=== PATIENT | male | born 1965 | race Caucasian/White ===

== ENCOUNTER 2021-02-25 14:38 | Outpatient (CLI) | payer OTHER, SELFPAY ==
--- NOTE | 2021-03-16 13:47 | WPDSLEEPSTUD ---
Sleep Study Date of Study: 02/25/21 Ordering Provider: Sadiq Gunderson MD Interpreting Physician: Brynn Ardon MD Sleep Study Type: CPAP Titration Height: 1.73 m Weight: 95.254 kg Body Mass Index: 31.9 Neck Circumference (inches): 17 [place]: 8 Reason for Sleep Study re-titration; he snores with CPAP * 04/20/2016 - CPAP titration wiht optimal pressure 8 cm * 05/10/2016 - Home sleep test - AHI 18, lowest saturation 78% Sleep History Jose Petersen is a 55 year old male with Obstructive sleep apnea syndrome who uses CPAP. Over the several months he has started snoring while using the CPAP. He presents for retitration. He rarely has trouble sleeping at night when he has a cold. He does not wake up gasping for breath at night. He rarely has breathing problems at night observed by others. He does not sweat excessively at night. He occasionally notices his heart pounding or beating irregularly at night. He occasionally falls asleep during the day, rarely falls asleep involuntarily, however never falls asleep while driving. he does not have loss of muscle tone with strong emotion. He does not have daytime difficulties due to excessive sleepiness. He does not feel paralyzed on waking or falling asleep. He does not have vivid dreamlike scenes upon awakening or falling asleep. He does not feel afraid to go to sleep. He denies having nightmares. He occasionally remembers his dreams. He occasionally has racing thoughts. He rarely feels sad or depressed. He occasionally has anxiety. He does not have muscular tension or notices parts of his body jerking. He does not kick at night. He denies crawling and aching feelings in his legs and any kind of leg pain at night. He denies morning jaw pain. he does not grind his teeth during sleep. He is not bothered by pain during the day or awakened by pain at night. He does not wake up feeling stiff in the morning with sore achy muscles or pain in the neck and spine. He has fatigue and memory problems. Normal bedtime is 9:30 p.m. taking 30 minutes to fall asleep waking perhaps once at night to use the bathroom and then returns to sleep quickly. He wakes in the morning at 5:30 a.m.. On the weekends, his bedtime is 11:30 p.m. and his wake time is 9:00 a.m. so he does have recovery sleep. He sometimes takes naps in the afternoon or evening. A short nap may be refreshing. He feels better in the morning compared other times of day. Habits: never smoked tobacco. Caffeine 4 beverages a day. No alcohol or recreational drugs. [facility] Past Medical History Medical History (Updated 03/16/21 @ 14:14 by Brynn Ardon MD) Asthma Depression Obstructive sleep apnea (~2015) Family History Family History Father Family history of heart disease in male family member before age 55 Family history of cardiovascular disease Acute myocardial infarction Sibling Patient's sister is in good health Mother Family history of malignant neoplasm of breast in first degree relative, Onset Age: 54 Other Diabetes mellitus Social History Social History Smoking status: Never smoker Alcohol intake: current Medications Medications: Advair 250/51 puff daily olanzapine 15 mg at night for sleep initiation and depression trazodone 100 mg at night for sleep initiation and depression Sleep Procedure This test was performed using the [employer] multiple channel system including EOG, EEG, submental EMG, EKG, nasal and oral airflow using thermistors and nasal pressure sensors, chest and abdominal belts for body position data, and pulse oximetry. Video monitoring was also performed. The study was scored using [facility] guidelines. The patient was started on CPAP using a medium AirFIt F 20 full face mask an heated humidifier. Initial pressure was 5 cm titrated up to final pressure of 11 cm. On
[2021-03-16 14:26] VITALS: BMI 31.9
== END 2021-02-26 08:00 | disposition home or self-care (01) ==
LOC: ANHCSM 03-09 14:38
PROVIDERS: PCP Internal Medicine; Visit Provider Otolaryngology
DX: G47.33 Obstructive sleep apnea (adult) (pediatric) (principal)
CPT/HCPCS: 95811

== ENCOUNTER 2023-07-26 01:02 | Day surgery (SDC) | payer BC, SELFPAY ==
[2023-07-12 14:29] VITALS: BMI 31.4
--- NOTE | 2023-07-25 15:15 | PM.HPGS ---
History of Present Illness History of Present Illness Consent: Risks, benefits, and alternatives have been discussed and questions answered. Patient agrees to proceed with procedure. Chief complaint: hx of colon polyps Narrative: Jose Petersen is a 58 year old male Referred for colon cancer screening. His last colonoscopy was 8 years ago. He had a small hyperplastic polyp removed at that time. Review of Systems Review of Systems: All systems reviewed & are unremarkable except as noted in HPI and below PMFSH Past Medical History Medical History Asthma Depression Insomnia [place] (obstructive sleep apnea) 2016 Overweight Type 2 diabetes mellitus without complications Surgical History Surgical History History of umbilical hernia repair History of ventral hernia repair Family History Family History Father Family history of heart disease in male family member before age 55 Family history of cardiovascular disease Acute myocardial infarction Sibling Patient's sister is in good health Mother Family history of malignant neoplasm of breast in first degree relative, Onset Age: 54 Other Diabetes mellitus Social History Social History Smoking status: Never smoker Alcohol intake: current Alcohol use details: occasional Substance use: current Substance use type: does not use Other substance usage details: occasional CBD gummies Lack of Transportation: No Lack of Food: Never True Current Housing: I Have Housing Concerned About Future Housing: No Difficulty Paying Gas/Electric Bills: No Difficulty Paying for Meds: No Currently Unemployed: No Difficulty w/ Childcare or Family Care: No Living arrangements: with family Occupation/Education: occupation Gender identity (if verbalized by the patient): Male Sexual Orientation (if Verbalized by the Patient): Straight or Heterosexual Spiritual care concerns: No Meds Home Medications and Allergies Home Medications Medication Instructions Recorded Confirmed Type fluticasone 250 mcg-salmeterol 50 1 inh inhalation BID #180 ea 06/28/22 07/26/23 Rx mcg/dose blistr powdr for inhalation (Advair Diskus) tadalafil 2.5 mg tablet (Cialis) 2.5 mg PO QHS 06/28/22 07/26/23 History albuterol sulfate 90 mcg/actuation 1 - 2 inh inhalation Q4-6H PRN 06/18/23 07/26/23 Rx aerosol inhaler shortness of breath or wheezing #8.5 grams fenofibrate nanocrystallized 145 See Rx Instructions .Route 06/21/23 07/26/23 Rx mg tablet .COMPLEX #90 tabs metformin 500 mg tablet,extended 500 mg PO DAILY #90 tabs 07/09/23 07/26/23 Rx release 24 hr olanzapine 15 mg tablet 15 mg PO QHS #90 tabs 07/09/23 07/26/23 Rx trazodone 100 mg tablet 100 mg PO QHS PRN sleep #90 tabs 07/09/23 07/26/23 Rx Allergies Allergy/AdvReac Type Severity Reaction Status Date / Time Iodinated Contrast Media Allergy Unknown Unknown Verified 07/26/23 09:42 Iodine and Iodide Containing Allergy Unknown Unknown Verified 07/26/23 09:42 Produc Contrast Media Allergy Mild Unknown Uncoded 07/26/23 09:42 Exam Const: General: alert Orientation/consciousness: patient oriented x3 Resp: Auscultation: clear to auscultation bilaterally Cardio: Rhythm: regular rhythm GI: GI Palp: Yes Soft to palpation and No Tenderness to palpation present (GI) Neuro: General: patient oriented x3 Assessment and Plan Assessment and plan (1) Colon cancer screening: Code(s): Z12.11 - Encounter for screening for malignant neoplasm of colon Status: Acute Assessment and Plan: Colonoscopy with possible biopsy or polypectomy or cautery or injection of substances.
[2023-07-26 09:45] VITALS: BP 135/77; PULSE 92; RESP 18; TEMP 36.6; O2SAT 96; BMI 31.2
[2023-07-26] MEDS: LACTATED RINGERS 1,000 ML 150 ML IV CONT (09:48)
[2023-07-26 09:59] LABS: Glucose Point of Care 118 mg/dl (65-105)
--- NOTE | 2023-07-26 10:10 | WPDANESEPPF ---
Anes - Initial Pre Proc Eval Procedure: Operation Date: 07/26/23 11:00 Proposed Procedures p Colonoscopy - Brock Rain MD Date/Time: 07/26/23 10:10 Surgeon: Brock Rain MD Pre Op Diagnosis: hx of colon polyps Patient Data Age: 58 Gender: M Height: 1.7 m Weight: 90.6 kg Last Vital Signs Temp 97.8 F 07/26/23 09:45 Pulse 92 07/26/23 09:45 Resp 18 07/26/23 09:45 BP 135/77 07/26/23 09:45 Pulse Ox 96 07/26/23 09:45 O2 Del Method Room Air 07/26/23 09:45 Allergies Allergy/AdvReac Type Severity Reaction Status Date / Time Iodinated Contrast Media Allergy Unknown Unknown Verified 07/26/23 09:42 Iodine and Iodide Containing Allergy Unknown Unknown Verified 07/26/23 09:42 Produc Contrast Media Allergy Mild Unknown Uncoded 07/26/23 09:42 Home Medications Medication Instructions Recorded Confirmed Type fluticasone 250 mcg-salmeterol 50 1 inh inhalation BID #180 ea 06/28/22 07/26/23 Rx mcg/dose blistr powdr for inhalation (Advair Diskus) tadalafil 2.5 mg tablet (Cialis) 2.5 mg PO QHS 06/28/22 07/26/23 History albuterol sulfate 90 mcg/actuation 1 - 2 inh inhalation Q4-6H PRN 06/18/23 07/26/23 Rx aerosol inhaler shortness of breath or wheezing #8.5 grams fenofibrate nanocrystallized 145 See Rx Instructions .Route 06/21/23 07/26/23 Rx mg tablet .COMPLEX #90 tabs metformin 500 mg tablet,extended 500 mg PO DAILY #90 tabs 07/09/23 07/26/23 Rx release 24 hr olanzapine 15 mg tablet 15 mg PO QHS #90 tabs 07/09/23 07/26/23 Rx trazodone 100 mg tablet 100 mg PO QHS PRN sleep #90 tabs 07/09/23 07/26/23 Rx Laboratory Tests 07/26/23 09:56 POC Capillary Glucose 118 H mg/dl (65-105) Patient hx anesthesia problems: none Family hx anesthesia problems: none Results Review: All pre-operative results and documents have been reviewed as part of the pre-operative evaluation. [facility] Past Medical History Medical History (Updated 07/25/23 @ 15:15 by Brock Rain MD) Asthma Depression Insomnia [place] (obstructive sleep apnea) 2016 Overweight Type 2 diabetes mellitus without complications Surgical History Surgical History (Updated 06/18/23 @ 10:32 by Anne Doll PA-C) History of umbilical hernia repair History of ventral hernia repair Family History Family History Father Family history of heart disease in male family member before age 55 Family history of cardiovascular disease Acute myocardial infarction Sibling Patient's sister is in good health Mother Family history of malignant neoplasm of breast in first degree relative, Onset Age: 54 Other Diabetes mellitus Social History Social History (Updated 06/18/23 @ 10:05 by Nyla Arora) Smoking status: Never smoker Alcohol intake: current Alcohol use details: occasional Substance use: current Substance use type: does not use Other substance usage details: occasional CBD gummies Lack of Transportation: No Lack of Food: Never True Current Housing: I Have Housing Concerned About Future Housing: No Difficulty Paying Gas/Electric Bills: No Difficulty Paying for Meds: No Currently Unemployed: No Difficulty w/ Childcare or Family Care: No Living arrangements: with family Occupation/Education: occupation Gender identity (if verbalized by the patient): Male Sexual Orientation (if Verbalized by the Patient): Straight or Heterosexual Spiritual care concerns: No Anes - Eval Final PreProcedure Day of Procedure 07/26/23 10:10 Patient weight: normal Heart: regular rate and rhythm Lungs: clear to auscultation Airway: Mallampati scale class II Neurological: alert and oriented Last oral intake: >/= 8 hours ASA classification: III Emergent: no Anesthetic plan: proceed Anesthesia type and monitoring: general GIVS and standard monitoring Results Review: All pre-opera
[2023-07-26 10:43] VITALS: BP 110/67; PULSE 73; RESP 16; O2SAT 96
[2023-07-26 10:53] VITALS: BP 120/70; PULSE 73; RESP 19; O2SAT 96
[2023-07-26 11:03] VITALS: BP 131/86; PULSE 67; RESP 20; O2SAT 96
== END 2023-07-26 11:15 | disposition home or self-care (01) ==
PROVIDERS: PCP Physician Assistant Medical; Visit Provider Internal Medicine Gastroenterology
PROC: 0DJD8ZZ Inspection of Lower Intestinal Tract, Via Natural or Artificial Opening Endoscopic (ICD-10-PCS; CPT 45378; principal; 2023-07-26 11:00)
DX: Z12.11 Encounter for screening for malignant neoplasm of colon (principal); D12.4 Benign neoplasm of descending colon; K63.5 Polyp of colon; E11.9 Type 2 diabetes mellitus without complications; J45.909 Unspecified asthma, uncomplicated; G47.33 Obstructive sleep apnea (adult) (pediatric); F32.A Depression, unspecified; Z79.51 Long term (current) use of inhaled steroids; Z79.84 Long term (current) use of oral hypoglycemic drugs
CPT/HCPCS: 45385; 45380; 82948; 88305; J2704; J7120